=== PATIENT | female | born 1985 | race Caucasian/White ===

== ENCOUNTER 2018-03-02 20:55 | Emergency (ER) | payer BC ==
[~2018-03-02] VITALS: Ht 170.2 cm; Wt 63.5 kg
[2018-03-02] MEDS ORDERED: PROAIR HFA8.5 GM INH (21:02)
[2018-03-02 21:06] VITALS: BP 116/80
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
[2018-03-02] MEDS ORDERED: IBUPROFEN600 MG ORAL (21:42)
[2018-03-02] MEDS ORDERED: ROBAXIN-750750 MG PO (21:42)
[2018-03-02 22:09] VITALS: BP 116/80
== END 2018-03-02 22:09 | disposition home or self-care (01) ==
LOC: EDBD 20:55 → EMR 21:11
DX: S80.01XA Contusion of right knee, initial encounter (principal); V09.9XXA Pedestrian injured in unspecified transport accident, initial encounter; Y92.414 Local residential or business street as the place of occurrence of the external cause; J45.909 Unspecified asthma, uncomplicated; M54.5 Low back pain; M25.552 Pain in left hip
CPT/HCPCS: 99283